=== PATIENT | male | born 1985 | race African-American/Black ===

== ENCOUNTER 2017-04-15 17:24 | Emergency (ER) | payer OTHER ==
[2017-04-15 17:41] VITALS: Ht 172.7 cm
[2017-04-15] MEDS ORDERED: OXYCODONE HCL IR 5 MG TAB (IMMEDIATE RELEASE) PO STA (17:56)
[2017-04-15] MEDS ORDERED: PENICILLIN V POTASSIUM 250 MG TAB PO ONE (18:00)
[2017-04-15] MEDS ORDERED: PENI-82 PO (18:02)
[2017-04-15] MEDS ORDERED: OXYC1TAB3 PO (18:02)
[2017-04-15] MEDS ORDERED: DOXY25TA7 PO (18:09)
[2017-04-15] MEDS ORDERED: IBUP-103 PO (18:09)
[2017-04-15 18:19] VITALS: BP 132/88; PULSE 80; TEMP 36.6; O2SAT 98
--- NOTE | 2017-04-15 22:59 | EMERGENCY ROOM VISIT NOTE ---
History First contact with patient: 17:45 Chief Complaint: DENTAL PAIN Stated Complaint: SEVERE TOOTHPAIN FOR SEVRL DAYS,HEADACHE,SWELLING Nursing Triage Summary: right back, lower tooth pain. started couple days ago History of Present Illness The patient is a 31 year old male who presents to the Emergency Room with complaints of severe right lower dental pain. The patient reports that the pain started a few days ago. He has been taking "too many" ibuprofen without significant relief. He reports a headache and mild facial swelling. The patient does not have a dentist, nor has he tried to call a dentist regarding his symptoms. He rates his discomfort a 10 out of 10. Review of Systems 10 system review was performed and was negative except for pertinent positives and negatives as indicated in history of present illness Past Medical/Surgical History Medical Problems: (1) Asthma (2) Low Back Pain (3) Umbilical Hernia Without Obstruction Or Gangrene Surgical Problems: (1) History of hernia repair Family History FH: diabetes mellitus FH: hypertension FH: kidney disease FH: seizures Social History Smoking Status: Current Every Day Smoker Alcohol Use: none Marital Status: Housing Status: lives with family Occupation Status: unemployed Current/Historical Medications Scheduled Penicillin V Potassium (Veetids), 500 MG PO QID Scheduled PRN Doxylamine Succinate (Sleep) (Unisom), 25 MG PO UD PRN for Sleep Ibuprofen Tab (Advil), 800 MG PO Q12 PRN for Pain Oxycodone Ir (Roxicodone Ir), 1-2 TAB PO Q4H PRN for Pain Physical Exam Vital Signs Date Time Temp Pulse Resp B/P (MAP) Pulse Ox O2 Delivery O2 Flow Rate FiO2 04/15/17 18:19 36.6 80 18 132/88 98 04/15/17 17:41 36.6 76 18 138/84 98 Room Air Physical Exam CONSTITUTIONAL: Healthy and well nourished. Alert and oriented X 3 with positive affect. HEENT: Normocephalic, atraumatic. Pupils equal, round and reactive. No facial edema noted. OROPHARYNX: The patient has poor dentition. The patient has no obvious gingival erythema, fluctuance or pointing. No evidence for Charbel's angina or retropharyngeal abscess. LYMPHATICS: No submental, submandibular or cervical chain adenopathy. NECK: Full active range of motion without discomfort. RESPIRATORY: Clear to auscultation bilaterally with no wheezing, crackles, rhonchi or stridor. CARDIOVASCULAR: Regular rate and rhythm with no murmurs, rubs or gallops. INTEGUMENTARY: No rash or other significant dermatologic conditions noted. NEUROLOGIC: Facial sensations are intact. Medical Decision & Procedures Medications Administered Medications (Trade) Dose Ordered Sig/Merle Route Start Time Stop Time Status Last Admin Dose Admin Penicillin V Potassium (Veetids Tab) 500 mg ONE ONCE PO 04/15/17 18:00 04/15/17 18:01 DC 04/15/17 18:06 500 MG Oxycodone HCl (Roxicodone Immediate Rel Tab) 5 mg NOW STAT PO 04/15/17 17:56 04/15/17 18:00 DC 04/15/17 18:07 5 MG ED Course Patient history and physical exam were performed. Nurse's notes were reviewed. Vital signs were reviewed and were normal. The [place] Prescription Drug Monitoring Program was also reviewed with no prior prescriptions noted. The patient will be provided prescriptions for Pen-Vee K 500 mg 4 times a day 10 days, and OxyIR 5 mg, dispensed #15 with no refills. The patient was given appropriate dosing for ibuprofen and Tylenol in alternating fashion for baseline pain relief. The patient was administered OxyIR 5 mg prior to discharge. He was instructed to follow-up with a dentist for further definitive management. The patient was advised that the emergency department does not provide dental services, referrals or chronic dental pain management. The patient and were happy with plan of care, and the patient rated his discomfort a 6 out of 10 at the conclusion of my exam. Medical Decision [place] Drug Monitoring Program Search Results: patient reviewed within database, no issues identified Medication Reconcilliation Current Medication List: was personally reviewed by id Blood Pressure Screening Patient's blood pressure: Normal blood pressure Impression Primary Impression: Dental infection Departure Information Dispostion Home / Self-Care Condition GOOD Prescriptions Oxycodone Ir (Roxicodone Ir) 5 Mg Tab 1-2 TAB PO Q4H Y for Pain, #15 TAB For Initial Treatment Prov: Chapin Vanessa PA 04/15/17 Penicillin V Potassium (Veetids) 500 Mg Tab 500 MG PO QID, #40 TAB Prov: Chapin Vanessa PA 04/15/17 Referrals Fortunato White, DDS Forms HOME CARE DOCUMENTATION FORM, IMPORTANT VISIT INFORMATION Patient Instructions My [facility] Additional Instructions Finish all Pen-Vee K antibiotics as prescribed. Ibuprofen 800 mg and/or Tylenol 1000 mg every 8 hours. You may also alternate these medications for more effective pain relief: Ibuprofen --4 HRS--> Tylenol --4 HRS--> ibuprofen --4 HRS--> Tylenol .... OxyIR if needed for worse pain. Do not drink or drive while taking OxyIR. Soft foods. YOU MUST SEE A DENTIST FOR DEFINITIVE CARE. THE EMERGENCY DEPARTMENT DOES NOT PROVIDE DENTAL SERVICES, REFERRALS OR CHRONIC DENTAL PAIN MANAGEMENT. YOU MAY ALSO CALL YOUR FAMILY DOCTOR FOR PAIN MANAGEMENT UNTIL YOU SEE YOUR DENTIST.
--- NOTE | 2017-04-16 18:16 | Pharmacy Progress Note ---
ED Pharmacist Progress Note Date of Service: Apr 16, 2017. Patient's called today stating she was unable to get the patient's pain medication filled at [facility]. She states that pt has to pay [place] for Rx 's. [facility] refused to fill the Rx for Oxy IR because the patient was paying [place] ( this is a practice specific to this one pharmacy in the area). The requested the Rx for Penicillin be transferred to [facility] in [place] because it was cheaper there. [facility] did transfer the Penicillin Rx to [facility] per the patient's request. Oxy IR Rx's cannot be transferred between pharmacies. I reviewed the case with Dr Guzman. He stated he would review the case and consider giving a reduced quantity of Oxy IR.
[2017-04-16] MEDS ORDERED: OXYC1TAB3 PO (18:55)
== END 2017-04-15 18:20 | disposition home or self-care (01) ==
LOC: C.EDB 17:25 → C.EDD 18:20
DX: K04.7 Periapical abscess without sinus (principal); J45.909 Unspecified asthma, uncomplicated; F17.200 Nicotine dependence, unspecified, uncomplicated; Z83.3 Family history of diabetes mellitus; Z82.49 Family history of ischemic heart disease and other diseases of the circulatory system; Z84.1 Family history of disorders of kidney and ureter; Z82.0 Family history of epilepsy and other diseases of the nervous system